=== PATIENT | female | born 2000 | race African-American/Black ===

== ENCOUNTER 2021-10-25 14:23 | Emergency (ER) | payer MEDICAID ==
[~2021-10-25] VITALS: Ht 154.9 cm; Wt 60.0 kg
[2021-10-25] MEDS ORDERED: ACETAMINOPHEN 325MG TABLET PO ONE (14:45)
[2021-10-25 15:37] LABS: CHLORIDE 108 mEq/L (98-107)
[2021-10-25 16:05] LABS: HEMATOCRIT. 43.4 % (36.0-48.0); HEMOGLOBIN. 13.9 g/dL (12.0-16.0); MEAN CORPUSCULAR HEMOGLOBIN 26.3 pg (28.0-32.0); MEAN CORPUSCULAR VOLUME 82.4 fL (81.0-99.0); RED BLOOD CELL COUNT 5.27 mill/uL (4.2-5.4); RED CELL DISTRIBUTION WIDTH 13.8 % (11.6-14.6)
[2021-10-25 17:25] LABS: MEAN PLATELET VOLUME 10.1 fl (7.4-10.4); PLATELET 176 x1000/uL (130-400); PLATELET ESTIMATE NORMAL
[2021-10-25] MEDS ORDERED: ACET-2708 MT (18:19)
[2021-10-25 18:35] VITALS: BP 110/65
== END 2021-10-25 18:32 | disposition home or self-care (01) ==
LOC: ER 14:23
DX: R07.89 Other chest pain (principal)
CPT/HCPCS: 36415; 71045; 80053; 83880; 84484; 85025; 93005; 99285

== ENCOUNTER 2022-02-17 11:09 | Emergency (ER) | payer MEDICAID ==
[~2022-02-17] VITALS: Ht 162.6 cm; Wt 65.0 kg
[~2022-02-17 11:09] MED LIST: ACET-2708 MT
[2022-02-17 11:11] VITALS: BP 165/97
[2022-02-17 15:22] LABS: CHLORIDE 100 mEq/L (98-107)
[2022-02-17 15:24] LABS: HEMATOCRIT. 45.4 % (36.0-48.0); HEMOGLOBIN. 14.9 g/dL (12.0-16.0); MEAN CORPUSCULAR HEMOGLOBIN 26.1 pg (28.0-32.0); MEAN CORPUSCULAR VOLUME 79.6 fL (81.0-99.0); MEAN PLATELET VOLUME 9.5 fl (7.4-10.4); PLATELET 306 x1000/uL (130-400); RED BLOOD CELL COUNT 5.71 mill/uL (4.2-5.4); RED CELL DISTRIBUTION WIDTH 14.6 % (11.6-14.6)
[2022-02-17 15:33] LABS: HCG SCREEN NEGATIVE
[2022-02-17 16:32] LABS: PLATELET ESTIMATE NORMAL
[2022-02-17] MEDS ORDERED: ONDANSETRON HCL 4MG/2ML INJ IV STA (16:42)
[2022-02-17] MEDS ORDERED: SODIUM CHLORIDE 0.9% 1,000 ML IV ONE (16:45)
[2022-02-17 17:18] LABS: CLARITY URINE TURBID (CLEAR); COLOR URINE ORANGE (YELLOW); KETONES URINE 2+ (NEGATIVE); LEUKOCYTE ESTERASE URINE TRACE (NEGATIVE); NITRITE URINE NEGATIVE (NEGATIVE); OCCULT BLOOD URINE 3+ (NEGATIVE); PH URINE 5.5 (4.5-8.0); PROTEIN URINE 3+ (NEGATIVE); SPECIFIC GRAVITY URINE 1.036 (1.005-1.030)
[2022-02-17 17:37] LABS: *AMPHETAMINES SCREEN URINE NEGATIVE (NEGATIVE); *BARBITURATES SCREEN URINE NEGATIVE (NEGATIVE); *BENZODIAZEPINES SCREEN URINE NEGATIVE (NEGATIVE); *COCAINE SCREEN URINE NEGATIVE (NEGATIVE); METHADONE URINE SCREEN NEGATIVE (NEGATIVE); OPIATES URINE SCREEN NEGATIVE (NEGATIVE); PHENCYCLIDINE URINE SCREEN NEGATIVE (NEGATIVE)
[2022-02-17 17:49] LABS: CANNABINOID URINE SCREEN PRESUMTIVE POSITIVE (NEGATIVE)
[2022-02-17] MEDS ORDERED: ONDA4TAB11 PO (20:17)
== END 2022-02-17 21:40 | disposition home or self-care (01) ==
LOC: ER 11:09
DX: E86.0 Dehydration (principal); Z20.822 Contact with and (suspected) exposure to COVID-19; I25.10 Atherosclerotic heart disease of native coronary artery without angina pectoris; Q24.9 Congenital malformation of heart, unspecified; Z95.1 Presence of aortocoronary bypass graft
CPT/HCPCS: 36415; 80053; 80305; 81003; 83690; 84703; 85025; 87426; 93005; 96361; 96374; 99284; J2405; J7030

== ENCOUNTER 2022-05-06 13:39 | Emergency (ER) | payer MEDICAID ==
[~2022-05-06] VITALS: Ht 152.4 cm; Wt 61.0 kg
[~2022-05-06 13:39] MED LIST changes: +ONDA4TAB11 PO
[2022-05-06 13:53] VITALS: BP 103/58
[2022-05-06] MEDS ORDERED: DIPH25CA83 MT (15:33)
[2022-05-06] MEDS ORDERED: CLIN-194 MT (15:33)
[2022-05-06] MEDS ORDERED: NAPR-681 MT (15:33)
== END 2022-05-06 16:09 | disposition home or self-care (01) ==
LOC: ER 13:39
DX: S40.861A Insect bite (nonvenomous) of right upper arm, initial encounter (principal); X58.XXXA Exposure to other specified factors, initial encounter; Y93.89 Activity, other specified; Y92.89 Other specified places as the place of occurrence of the external cause; Y99.8 Other external cause status
CPT/HCPCS: 99283

== ENCOUNTER 2024-01-12 19:35 | Emergency (ER) | payer MEDICAID, OTHER ==
[~2024-01-12] VITALS: Ht 152.4 cm; Wt 56.0 kg
[~2024-01-12 19:35] MED LIST changes: +CLIN-194 MT; +DIPH25CA83 MT; +NAPR-681 MT
[2024-01-12 19:44] VITALS: O2SAT 98
[2024-01-12] MEDS: SODIUM CHLORIDE 0.9% 1,000 ML IV ONE (19:45)
[2024-01-12 21:25] LABS: BASOPHILS % 0.4 % (0.0-2.0); EOSINOPHILS % 0.2 % (0.0-5.0); HEMATOCRIT. 42.9 % (36.0-48.0); HEMOGLOBIN. 14.2 g/dL (12.0-16.0); LYMPHOCYTES % 13.1 % (20.0-50.0); MEAN CORPUSCULAR HEMOGLOBIN 27.2 pg (28.0-32.0); MEAN CORPUSCULAR HGB CONC 33.1 g/dL (31.0-37.0); MEAN CORPUSCULAR VOLUME 82.3 fL (81.0-99.0); MEAN PLATELET VOLUME 9.1 fl (7.4-10.4); MONOCYTES % 10.6 % (2.0-8.0); NEUTROPHILS % 75.7 % (40.0-76.0); PLATELET 269 x1000/uL (130-400); RED BLOOD CELL COUNT 5.22 mill/uL (4.2-5.4); RED CELL DISTRIBUTION WIDTH 14.8 % (11.6-14.6); WHITE BLOOD COUNT 7.9 x1000/uL (4.5-11.0)
[2024-01-12 21:34] LABS: INR 1.2; PROTHROMBIN TIME 13.2 sec (9.6-11.0)
[2024-01-12 21:40] LABS: ALANINE AMINOTRANSFERASE 18 IU/L (10-49); ALBUMIN 5.6 g/dL (3.2-4.8); ASPARTATE AMINOTRANSFERASE 26 IU/L (<34); BILIRUBIN TOTAL 1.6 mg/dL (0.1-1.0); CALCIUM 10.3 mg/dL (8.7-10.4); CARBON DIOXIDE 27 mEq/L (21-32); CHLORIDE 101 mEq/L (98-107); GLUCOSE 109 mg/dL (70-105); POTASSIUM 3.8 mEq/L (3.5-5.1); PROTEIN TOTAL 9.8 g/dL (6.0-8.3); SODIUM 137 mEq/L (136-145); UREA NITROGEN BLOOD 14 mg/dL (9-23)
[2024-01-13] MEDS ORDERED: ONDA4TAB50 MT (01:23)
[2024-01-13] MEDS ORDERED: PROT20 MT (01:23)
[2024-01-13] MEDS: ONDANSETRON HCL 4MG/2ML INJ IV NR (02:00)
[2024-01-13 04:07] LABS: HCG SCREEN NEGATIVE
[2024-01-13] MEDS: ONDANSETRON HCL 4MG/2ML INJ IV ONE (04:23)
[2024-01-13 07:42] VITALS: BP 144/96; PULSE 71; RESP 18; TEMP 98.7
== END 2024-01-13 07:42 | disposition home or self-care (01) ==
LOC: ER 19:35
DX: K92.0 Hematemesis (principal); Z88.0 Allergy status to penicillin; Z88.6 Allergy status to analgesic agent; Z98.890 Other specified postprocedural states; Z20.822 Contact with and (suspected) exposure to COVID-19
CPT/HCPCS: 99285; 96361; 80053; 84703; 83690; 85025; 85610; 36415; 96374; 76705; 87426; 83605; J7030; J2405

== ENCOUNTER 2024-03-31 10:37 | Emergency (ER) | payer OTHER ==
[~2024-03-31] VITALS: Ht 165.1 cm; Wt 54.0 kg
[~2024-03-31 10:37] MED LIST changes: +ONDA4TAB50 MT; +PROT20 MT
[2024-03-31 10:39] VITALS: TEMP 98.1; O2SAT 95
[2024-03-31 11:34] LABS: BASOPHILS % 0.6 % (0.0-2.0); DIFFERENTIAL COMMENT 0; EOSINOPHILS % 0.2 % (0.0-5.0); HEMATOCRIT. 43.6 % (36.0-48.0); HEMOGLOBIN. 14.5 g/dL (12.0-16.0); LYMPHOCYTES % 13.3 % (20.0-50.0); MEAN CORPUSCULAR HEMOGLOBIN 26.2 pg (28.0-32.0); MEAN CORPUSCULAR HGB CONC 33.3 g/dL (31.0-37.0); MEAN CORPUSCULAR VOLUME 78.9 fL (81.0-99.0); MEAN PLATELET VOLUME 8.9 fl (7.4-10.4); NEUTROPHILS % 73.9 % (40.0-76.0); PLATELET 317 x1000/uL (130-400); RED BLOOD CELL COUNT 5.53 mill/uL (4.2-5.4); WHITE BLOOD COUNT 8.2 x1000/uL (4.5-11.0)
[2024-03-31 11:36] LABS: CHLORIDE 100 mEq/L (98-107); POTASSIUM 3.4 mEq/L (3.5-5.1); SODIUM 134 mEq/L (136-145)
[2024-03-31 11:37] LABS: CALCIUM 10.8 mg/dL (8.7-10.4); CARBON DIOXIDE 23 mEq/L (21-32)
[2024-03-31] MEDS: SODIUM CHLORIDE 0.9% 1,000 ML IV ONE (11:37)
[2024-03-31 11:38] LABS: HCG SCREEN NEGATIVE
[2024-03-31] MEDS: ONDANSETRON HCL 4MG/2ML INJ IV STA (11:39)
[2024-03-31 11:42] LABS: CREATININE 0.9 mg/dL (0.6-1.0); GLUCOSE 95 mg/dL (70-105); INR 1.2; UREA NITROGEN BLOOD 19 mg/dL (9-23)
[2024-03-31] MEDS: DICYCLOMINE HCL 20MG TABLET PO STA (13:52)
[2024-03-31] MEDS ORDERED: DICY20TA2 MT (13:56)
[2024-03-31] MEDS ORDERED: ONDA4TAB11 PO (13:56)
[2024-03-31] MEDS ORDERED: IOHEXOL-300 100 ML BOTTLE ONE (15:07)
[2024-03-31] MEDS: ONDANSETRON HCL 4MG/2ML INJ IV ONE (15:20)
[2024-03-31 15:33] VITALS: BP 141/102; PULSE 72; RESP 15
== END 2024-03-31 15:33 | disposition home or self-care (01) ==
LOC: ER 10:37 → CANBEDREQ 04-02 02:37
DX: R10.84 Generalized abdominal pain (principal); R11.2 Nausea with vomiting, unspecified; F32.9 Major depressive disorder, single episode, unspecified; F12.10 Cannabis abuse, uncomplicated; Z79.899 Other long term (current) drug therapy
CPT/HCPCS: 80048; 84703; 83690; 85025; 85610; 36415; 74177; 96374; 96376; 99285; Q9967; J2405; J7030; Z7610 ×3

== ENCOUNTER 2024-05-01 10:10 | Emergency (ER) | payer OTHER ==
[~2024-05-01] VITALS: Ht 165.1 cm; Wt 64.0 kg
[~2024-05-01 10:10] MED LIST changes: +DICY20TA2 MT
[2024-05-01 10:14] VITALS: O2SAT 98
[2024-05-01] MEDS: SODIUM CHLORIDE 0.9% 1,000 ML IV ONE (10:30)
[2024-05-01] MEDS: ONDANSETRON HCL 4MG/2ML INJ IV ONE (11:00)
[2024-05-01] MEDS: FAMOTIDINE 20MG/2ML VIAL IV ONE (11:00)
[2024-05-01 11:20] LABS: HEMOGLOBIN. 13.5 g/dL (12.0-16.0); MEAN CORPUSCULAR HGB CONC 32.1 g/dL (31.0-37.0); MEAN PLATELET VOLUME 8.7 fl (7.4-10.4); PLATELET 301 x1000/uL (130-400); RED BLOOD CELL COUNT 5.38 mill/uL (4.2-5.4); RED CELL DISTRIBUTION WIDTH 15.9 % (11.6-14.6); WHITE BLOOD COUNT 4.8 x1000/uL (4.5-11.0)
[2024-05-01 11:21] LABS: DIFFERENTIAL COMMENT 1
[2024-05-01 11:26] LABS: CHLORIDE 100 mEq/L (98-107); POTASSIUM 3.6 mEq/L (3.5-5.1); SODIUM 136 mEq/L (136-145)
[2024-05-01 11:27] LABS: CARBON DIOXIDE 26 mEq/L (21-32)
[2024-05-01 11:28] LABS: HCG SCREEN NEGATIVE
[2024-05-01 11:32] LABS: CREATININE 0.9 mg/dL (0.6-1.0); GLUCOSE 106 mg/dL (70-105); UREA NITROGEN BLOOD 14 mg/dL (9-23)
[2024-05-01 11:34] LABS: ALANINE AMINOTRANSFERASE 9 IU/L (10-49); ASPARTATE AMINOTRANSFERASE 18 IU/L (<34); BILIRUBIN DIRECT 0.5 mg/dL (<=3.0)
[2024-05-01 11:35] LABS: BILIRUBIN TOTAL 1.2 mg/dL (0.1-1.0); PROTEIN TOTAL 8.7 g/dL (6.0-8.3)
[2024-05-01 11:39] LABS: CLARITY URINE TURBID (CLEAR); COLOR URINE DARK YELLOW (YELLOW); GLUCOSE URINE NEGATIVE (NEGATIVE); KETONES URINE 2+ (NEGATIVE); LEUKOCYTE ESTERASE URINE 2+ (NEGATIVE); NITRITE URINE NEGATIVE (NEGATIVE); OCCULT BLOOD URINE NEGATIVE (NEGATIVE); PROTEIN URINE 2+ (NEGATIVE); SPECIFIC GRAVITY URINE 1.029 (1.005-1.030)
[2024-05-01] MEDS: ACETAMINOPHEN 325MG TABLET PO STA (11:39)
[2024-05-01] MEDS: HALOPERIDOL LACTATE 5MG/ML VIAL IM ONE (11:39)
[2024-05-01 11:51] LABS: ANISOCYTOSIS 1+; MICROCYTOSIS 1+; PLATELET ESTIMATE NORMAL
[2024-05-01 12:00] LABS: BACTERIA URINE 4+; RBC URINE 15-25 /hpf (0-2); SQUAMOUS EPITHELIAL CELL URINE 3+ /lpf (RARE/1+); WBC URINE 15-25 /hpf (0-2); YEAST URINE NONE SEEN
[2024-05-01] MEDS ORDERED: FAMO20TA8 MT (12:43)
[2024-05-01] MEDS ORDERED: CIPR-263 MT (12:43)
[2024-05-01] MEDS ORDERED: ACET-2708 MT (12:43)
[2024-05-01] MEDS ORDERED: ONDA4TAB50 MT (12:43)
[2024-05-01 13:20] VITALS: BP 128/77; PULSE 69; RESP 17; TEMP 98.2
== END 2024-05-01 13:02 | disposition home or self-care (01) ==
LOC: ER 10:10
DX: N39.0 Urinary tract infection, site not specified (principal); K29.00 Acute gastritis without bleeding; F12.90 Cannabis use, unspecified, uncomplicated; F31.9 Bipolar disorder, unspecified; Z98.890 Other specified postprocedural states; Z88.8 Allergy status to other drugs, medicaments and biological substances; Z88.6 Allergy status to analgesic agent
CPT/HCPCS: 80076; 80048; 81003; 81025; 84703; 83690; 85025; 87086; 36415; 96361; 96372; 96374; 96375; 99284; J3490; J1630; J2405; J7030; Z7610 ×2

== ENCOUNTER 2024-06-09 12:02 | Emergency (ER) | payer OTHER ==
[~2024-06-09] VITALS: Ht 149.9 cm; Wt 55.0 kg
[~2024-06-09 12:02] MED LIST changes: +CIPR-263 MT; +FAMO20TA8 MT
[2024-06-09 12:04] VITALS: O2SAT 99
[2024-06-09] MEDS: SODIUM CHLORIDE 0.9% 1,000 ML IV ONE (12:15)
[2024-06-09 12:47] LABS: HEMATOCRIT. 43.9 % (36.0-48.0); HEMOGLOBIN. 13.8 g/dL (12.0-16.0); MEAN CORPUSCULAR HEMOGLOBIN 23.4 pg (28.0-32.0); MEAN CORPUSCULAR HGB CONC 31.4 g/dL (31.0-37.0); MEAN CORPUSCULAR VOLUME 74.5 fL (81.0-99.0); MEAN PLATELET VOLUME 9.1 fl (7.4-10.4); PLATELET 260 x1000/uL (130-400); RED BLOOD CELL COUNT 5.89 mill/uL (4.2-5.4); RED CELL DISTRIBUTION WIDTH 17.1 % (11.6-14.6)
[2024-06-09 12:50] LABS: CHLORIDE 98 mEq/L (98-107); POTASSIUM 3.4 mEq/L (3.5-5.1); SODIUM 132 mEq/L (136-145)
[2024-06-09 12:51] LABS: CALCIUM 10.8 mg/dL (8.7-10.4); CARBON DIOXIDE 24 mEq/L (21-32)
[2024-06-09 12:54] LABS: INR 1.2; PROTHROMBIN TIME 12.9 sec (9.6-11.0)
[2024-06-09 12:56] LABS: GLUCOSE 99 mg/dL (70-105); UREA NITROGEN BLOOD 14 mg/dL (9-23)
[2024-06-09 13:04] LABS: HCG SCREEN NEGATIVE
[2024-06-09 13:05] LABS: DIFFERENTIAL COMMENT 1
[2024-06-09] MEDS: ONDANSETRON HCL 4MG/2ML INJ IV STA (13:27)
[2024-06-09] MEDS: MORPHINE SULFATE 4 MG/ML INJ (FOR IV/IM USE) IV STA (13:27)
[2024-06-09] MEDS ORDERED: IOHEXOL-300 100 ML BOTTLE ONE (15:14)
[2024-06-09 15:25] VITALS: BP 126/73; PULSE 76; RESP 15; TEMP 36.78072; O2SAT 99
[2024-06-09 16:12] LABS: ANISOCYTOSIS 1+; HYPOCHROMASIA 1+; MICROCYTOSIS 2+; PLATELET ESTIMATE NORMAL
== END 2024-06-09 15:37 | disposition home or self-care (01) ==
LOC: ER 12:02
DX: R10.9 Unspecified abdominal pain (principal); R11.2 Nausea with vomiting, unspecified; F32.A Depression, unspecified; F12.90 Cannabis use, unspecified, uncomplicated; Z98.890 Other specified postprocedural states; Z79.899 Other long term (current) drug therapy; Z88.6 Allergy status to analgesic agent; Z88.8 Allergy status to other drugs, medicaments and biological substances
CPT/HCPCS: 80048; 84703; 83690; 85025; 85610; 36415; 74177; 96361; 96374; 96375; 99285; Q9967; J2405; J2270; J7030; Z7610

== ENCOUNTER 2024-09-15 05:41 | Emergency (ER) | payer OTHER ==
[~2024-09-15] VITALS: Ht 162.6 cm; Wt 50.0 kg
[~2024-09-15 05:41] MED LIST changes: +ONDA-239 PO; -ONDA4TAB11 PO
[2024-09-15 06:10] LABS: HEMATOCRIT. 45.6 % (36.0-48.0); HEMOGLOBIN. 14.8 g/dL (12.0-16.0); MEAN CORPUSCULAR HEMOGLOBIN 24.7 pg (28.0-32.0); MEAN CORPUSCULAR HGB CONC 32.4 g/dL (31.0-37.0); MEAN CORPUSCULAR VOLUME 76.1 fL (81.0-99.0); MEAN PLATELET VOLUME 8.5 fl (7.4-10.4); PLATELET 249 x1000/uL (130-400); RED BLOOD CELL COUNT 5.99 mill/uL (4.2-5.4); RED CELL DISTRIBUTION WIDTH 18.5 % (11.6-14.6); WHITE BLOOD COUNT 4.7 x1000/uL (4.5-11.0)
[2024-09-15 06:14] LABS: DIFFERENTIAL COMMENT 1
[2024-09-15 06:18] LABS: CARBON DIOXIDE 25 mEq/L (21-32); CHLORIDE 103 mEq/L (98-107); POTASSIUM 3.5 mEq/L (3.5-5.1); SODIUM 137 mEq/L (136-145)
[2024-09-15 06:19] LABS: CALCIUM 10.2 mg/dL (8.7-10.4)
[2024-09-15] MEDS: ONDANSETRON HCL 4MG/2ML INJ IV STA (06:22)
[2024-09-15] MEDS: METOCLOPRAMIDE HCL 10MG/2ML VIAL IV STA (06:22)
[2024-09-15] MEDS: SODIUM CHLORIDE 0.9% 1,000 ML IV ONE (06:22)
[2024-09-15 06:23] LABS: GLUCOSE 114 mg/dL (70-105)
[2024-09-15 06:24] LABS: UREA NITROGEN BLOOD 17 mg/dL (9-23)
[2024-09-15 06:25] LABS: ALANINE AMINOTRANSFERASE 10 IU/L (10-49); ALBUMIN 4.9 g/dL (3.2-4.8); ASPARTATE AMINOTRANSFERASE 20 IU/L (<34)
[2024-09-15 06:26] LABS: BILIRUBIN DIRECT 0.3 mg/dL (<=3.0); BILIRUBIN TOTAL 0.9 mg/dL (0.1-1.0); PROTEIN TOTAL 8.8 g/dL (6.0-8.3)
[2024-09-15 06:34] LABS: HCG SCREEN NEGATIVE
[2024-09-15 07:11] LABS: ANISOCYTOSIS 2+; MICROCYTOSIS 1+; PLATELET ESTIMATE NORMAL
[2024-09-15 07:48] VITALS: BP 138/87; PULSE 78; RESP 18; TEMP 37.00296; O2SAT 99
== END 2024-09-15 07:50 | disposition home or self-care (01) ==
LOC: ER 05:41
DX: R11.2 Nausea with vomiting, unspecified (principal); R10.84 Generalized abdominal pain; F12.10 Cannabis abuse, uncomplicated; Z88.0 Allergy status to penicillin; Z88.6 Allergy status to analgesic agent; Z79.899 Other long term (current) drug therapy
CPT/HCPCS: 80076; 80048; 84703; 83690; 85025; 36415; 96361; 96374; 96375; 99284; J2765; J2405; J7030; Z7610

== ENCOUNTER 2024-10-01 10:54 | Emergency (ER) | payer OTHER ==
[~2024-10-01] VITALS: Ht 160 cm; Wt 70.0 kg
[2024-10-01 11:11] VITALS: O2SAT 95
[2024-10-01] MEDS ORDERED: LEVOFLOXACIN 750MG PREMIX 150 ML IV ONE (13:15)
[2024-10-01] MEDS ORDERED: CLINDAMYCIN 600 MG in DEXTROSE 5% WATER 50 ML IV ONE (13:15)
[2024-10-01] MEDS ORDERED: DEXAMETHASONE 4MG/ML 1ML VIAL IV ONE (13:15)
[2024-10-01] MEDS: ACETAMINOPHEN 325MG TABLET PO STA (13:23)
[2024-10-01] MEDS: SODIUM CHLORIDE 0.9% (SEPSIS BOLUS) IV ONE (13:30)
[2024-10-01] MEDS ORDERED: DEXAMETHASONE 10 MG/ML VIAL IV ONE (13:30)
[2024-10-01] MEDS: DEXAMETHASONE 10 MG/ML VIAL IV SCH ×2 (13:45→16:15)
[2024-10-01] MEDS: CLINDAMYCIN 600MG PREMIX 50 ML IV ONE (13:45)
[2024-10-01 13:54] LABS: POTASSIUM 3.8 mEq/L (3.5-5.1)
[2024-10-01 13:56] LABS: BASOPHILS % 0.8 % (0.0-2.0); CALCIUM 9.6 mg/dL (8.7-10.4); EOSINOPHILS % 0.1 % (0.0-5.0); HEMOGLOBIN. 13.2 g/dL (12.0-16.0); LYMPHOCYTES % 23.6 % (20.0-50.0); MEAN CORPUSCULAR HEMOGLOBIN 23.7 pg (28.0-32.0); MEAN CORPUSCULAR HGB CONC 31.5 g/dL (31.0-37.0); MEAN CORPUSCULAR VOLUME 75.4 fL (81.0-99.0); MONOCYTES % 11.3 % (2.0-8.0); NEUTROPHILS % 64.2 % (40.0-76.0); RED BLOOD CELL COUNT 5.58 mill/uL (4.2-5.4); RED CELL DISTRIBUTION WIDTH 17.5 % (11.6-14.6); WHITE BLOOD COUNT 9.2 x1000/uL (4.5-11.0)
[2024-10-01 14:00] LABS: INR 1.2; PROTHROMBIN TIME 13.6 sec (9.6-11.0)
[2024-10-01 14:06] LABS: DIFFERENTIAL COMMENT 1
[2024-10-01 14:11] LABS: CLARITY URINE CLOUDY (CLEAR); COLOR URINE YELLOW (YELLOW); PH URINE 5.5 (4.5-8.0); SPECIFIC GRAVITY URINE >1.030 (1.005-1.030)
[2024-10-01 14:12] LABS: CREATININE 1.7 mg/dL (0.6-1.0)
[2024-10-01 14:13] LABS: GLUCOSE URINE TRACE (NEGATIVE); KETONES URINE TRACE (NEGATIVE); LEUKOCYTE ESTERASE URINE NEGATIVE (NEGATIVE); NITRITE URINE NEGATIVE (NEGATIVE); OCCULT BLOOD URINE 3+ (NEGATIVE); PROTEIN URINE 3+ (NEGATIVE)
[2024-10-01 14:25] LABS: FINE GRANULAR CASTS URINE 0-5 /lpf; HYALINE CASTS URINE 0-5 /lpf; SQUAMOUS EPITHELIAL CELL URINE 2+ /lpf (RARE/1+)
[2024-10-01 14:26] LABS: BACTERIA URINE 4+; RBC URINE 0-2 /hpf (0-2); WBC URINE 0-2 /hpf (0-2)
[2024-10-01] MEDS ORDERED: LEVOFLOXACIN 250MG PREMIX 50 ML IV NR (14:30)
[2024-10-01 14:47] LABS: PLATELET 87 x1000/uL (130-400)
[2024-10-01 15:36] LABS: LACTIC ACID 4.3 mmol/L (0.4-2.0)
[2024-10-01] MEDS: IOHEXOL-300 100 ML BOTTLE ONE (15:59)
[2024-10-01] MEDS: ONDANSETRON HCL 4MG/2ML INJ IV STA (16:42)
[2024-10-01] MEDS: LEVOFLOXACIN 500MG PREMIX 150 ML IV ONE ×2 (16:43)
[2024-10-01] MEDS: CLINDAMYCIN 600MG PREMIX 50 ML IV SCH (17:29)
[2024-10-01] MEDS: LEVOFLOXACIN 250MG PREMIX 50 ML IV NR (17:46)
[2024-10-01 22:40] VITALS: BP 128/68; PULSE 90; RESP 14; TEMP 37.33632; O2SAT 95
== END 2024-10-01 22:40 | disposition short-term general hospital (02) ==
LOC: ER 11:09 → EDBEDREQ 13:31 → CANBEDREQ 15:13 → ER 22:40
DX: J39.1 Other abscess of pharynx (principal); J36 Peritonsillar abscess; F12.90 Cannabis use, unspecified, uncomplicated; Z98.890 Other specified postprocedural states; Z79.899 Other long term (current) drug therapy; Z88.0 Allergy status to penicillin; Z88.6 Allergy status to analgesic agent; Z95.1 Presence of aortocoronary bypass graft; Z20.822 Contact with and (suspected) exposure to COVID-19
CPT/HCPCS: 80048; 81003; 81025; 87430; 83605; 85025; 85610; 87040; 87086; 87070; 36415; 84145; 71045; 70491; 93005; 96367; 96361; 96365; 96375; 99291; 87426; Q9967; J1956 ×2; J1100; J2405; J3490; J7030; Z7610; J7060